=== PATIENT | male | born 1970 | race Caucasian/White ===

== ENCOUNTER → 2017-10-14 | Outpatient (CLI) | payer OTHER ==
--- NOTE | ~2017-10-14 | 24HR ---
[facility] [place] [address] 24 HR ELECTROCARDIOGRAM REPORT Name: HECTOR LUCERO Room #: REG [facility]#: [id number] Admission: 10/14/17 Attend Phys: Thomas Jaime MD Discharge: Date of : 70 Date of Service: 10/14/17 1502 Report #: [id number] THIS REPORT FOR: //name// [facility] Test Date: 2017-10-14 Test Time: 15:02:00 Pat Name: HECTOR LUCERO Department: Room: Gender: Heater Mechanic: : 1970 Requested By: Thomas Jaime Order Number: [id number] Reading MD: Mayur Trimble Interpretive Statements 1. The study duration was 24 hours and the technical quality was good. 2. Predominant rhythm sinus rhythm with an average heart rate of 63 bpm, range 41-126 bpm. Longest RR interval 1.6 seconds. 3. Rare, isolated premature supraventricular complexes and one atrial couplet. No atrial fibrillation or atrial flutter. No heart block. No supraventricular tachycardia. 4. 1 isolated premature ventricular complexes. No ventricular tachycardia. 5. No symptoms reported Electronically Signed On 10-17-2017 8:15:54 [employer] by Mayur Trimble [email or web address] <ELECTRONICALLY SIGNED> By: Mayur Trimble MD, [facility] 10/17/17 0815 1502 1502 Mayur Trimble MD, [facility] /EPI
== END ==
LOC: CV 13:06
DX: R42 Dizziness and giddiness (principal)